=== PATIENT | female | born 1945 | race Caucasian/White ===

== ENCOUNTER 2017-11-14 08:42 | Emergency (ER) | payer MEDICARE, BC ==
[2017-11-14 08:43] VITALS: BMI 20.9
[2017-11-14 09:00] VITALS: TEMP 98.6; O2SAT 100
--- NOTE | 2017-11-14 11:07 | ED PDOC ---
Arrival/HPI - General Chief Complaint: Back Pain Time Seen by Provider: 11/14/17 09:14 Historian: Patient - History of Present Illness Narrative History of Present Illness (Text): 11/14/17 11:04 72yo female with no PMhx present with complaint of severe sharp left sided lower back pain that radiates posteriorly to her foot x 10days. States pain is usually worse with movement. Notes that she took ASA yesterday and applied topical OTC analgesic without relieve. Denies abdominal pain, urinary symptoms, focal weakness, trauma, urinary/fecal incontinence, any other complaint. Past Medical History - Provider Review Nursing Documentation Reviewed: Yes - Infectious Disease Hx of Infectious Diseases: None - Reproductive Menopause: Yes - Hematological/Oncological Hx Blood Transfusions: No - Psychiatric Hx Emotional Abuse: No Hx Physical Abuse: No Hx Substance Use: No - Anesthesia Hx Anesthesia: No Hx Anesthesia Reactions: No Hx Malignant Hyperthermia: No - Suicidal Assessment Feels Threatened In Home Enviroment: No Family/Social History - Physician Review Nursing Documentation Reviewed: Yes Family/Social History: Unknown Family HX Smoking Status: Never Smoked Hx Alcohol Use: No Hx Substance Use: No Allergies/Home Meds Allergies/Adverse Reactions: Allergies No Known Allergies Allergy (Verified 11/14/17 09:14) Home Medications: Home Meds Medication Instructions Recorded Confirmed Acetaminophen [Tylenol 325mg tab] 500 mg PO QID PRN 11/14/17 11/14/17 Review of Systems - Physician Review All systems were reviewed & negative as marked: Yes - Review of Systems Constitutional: Normal Eyes: Normal ENT: Normal Respiratory: Normal Cardiovascular: Normal Gastrointestinal: Normal Genitourinary Female: Normal Musculoskeletal: Back Pain Skin: Normal Neurological: Normal Endocrine: Normal Hemo/Lymphatic: Normal Psychiatric: Normal Physical Exam Vital Signs Reviewed: Yes Vital Signs Temp Pulse Resp BP Pulse Ox 11/14/17 08:59 98.6 F 81 18 144/88 100 11/14/17 08:50 97.7 F 100 H 18 131/66 99 Temperature: Afebrile Blood Pressure: Normal Pulse: Regular Respiratory Rate: Normal Appearance: Positive for: Well-Appearing, Non-Toxic, Comfortable Pain Distress: None Mental Status: Positive for: Alert and Oriented X 3 - Systems Exam Head: Present: Atraumatic, Normocephalic Pupils: Present: PERRL Extroacular Muscles: Present: EOMI Conjunctiva: Present: Normal Mouth: Present: Moist Mucous Membranes Neck: Present: Normal Range of Motion Respiratory/Chest: Present: Clear to Auscultation, Good Air Exchange. No: Respiratory Distress, Accessory Muscle Use Cardiovascular: Present: Regular Rate and Rhythm, Normal S1, S2. No: Murmurs Abdomen: Present: Normal Bowel Sounds. No: Tenderness, Distention, Peritoneal Signs Back: Present: Paraspinal Tenderness (Left paralumbar tenderness), Pain with Leg Raise (Left leg). No: CVA Tenderness, Midline Tenderness Upper Extremity: Present: Normal Inspection. No: Cyanosis, Edema Lower Extremity: Present: Normal Inspection. No: Edema Neurological: Present: GCS=15, CN II-XII Intact, Speech Normal Skin: Present: Warm, Dry, Normal Color. No: Rashes Psychiatric: Present: Alert, Oriented x 3, Normal Insight, Normal Concentration Medical Decision Making ED Course and Treatment: 11/14/17 11:07 PT in ED for stated history. On re evaluation pt states her pain improved with medication in ED. She was ambulatory and neurologically intact. LS xray - No acute fracture/finding Result was DW the pt. she will be DC home with rx of Naprosyn and flexeril. Referred to her PMD - RAD Interpretation Radiology Orders: 11/14/17 09:20 LS SPINE WITH OBL > 18 YRS OLD [RAD] Stat - Medication Orders Current Medication Orders: Discontinued Medications Cyclobenzaprine HCl (Flexeril) 10 mg PO STAT STA Stop: 11/14/17 09:23 Last Admin: 11/14/17 09:42 Dose: 10 mg Ketorolac Tromethamine (Toradol) 60 mg IM STAT STA Stop: 11/14/17 09:22 Last Admin: 11/14/17 09:40 Dose: 60 mg MAR Pain Assessment Document 11/14/17 09:40 SF (Rec: 11/14/17 09:42 SF [facility] [place] [facility] [id number] Pain Reassessment Is this a pain reassessment? Yes Sleep Is patient sleeping during reassessment? No Presence of Pain Presence of Pain Yes IM Administration Charges Document 11/14/17 09:40 SF (Rec: 11/14/17 09:42 SF [facility] [place] [facility] [id number] Injection Site MAR Injection Site Left Deltoid Charges for Administration # of IM Administrations 1 Disposition/Present on Arrival - Present on Arrival Any Indicators Present on Arrival: No History of DVT/PE: No History of Uncontrolled Diabetes: No Urinary Catheter: No History of Decub. Ulcer: No History Surgical Site Infection Following: None - Disposition Have Diagnosis and Disposition been Completed?: Yes Diagnosis: Back pain, Sciatica Disposition: HOME/ ROUTINE Disposition Time: 11:15 Patient Plan: Discharge Condition: STABLE Discharge Instructions (ExitCare): Sciatica (DC) Additional Instructions: Follow up with your doctor/Orthopedist Return to ED for any new or worsening symptoms Prescriptions: Cyclobenzaprine [Flexeril] 5 mg PO DAILY #10 tab Naproxen [Naprosyn] 500 mg PO BID #20 tablet Referrals: Mara Abad DO [Primary Care Provider] - Follow up with primary Cee Reddy MD [Staff Provider] - Follow up with primary Forms: [employer] (Danish)
--- NOTE | 2017-11-14 11:11 | RAD ---
PROCEDURE: Radiographs of the Lumbar Spine. HISTORY: back pain COMPARISON: No prior. FINDINGS: BONES: Normal alignment. No listhesis. No fracture. DISC SPACES: Disc and facet degeneration at L5-S1 OTHER FINDINGS: None. IMPRESSION: Disc and facet degeneration at L5-S1
[2017-11-14 11:36] VITALS: BP 140/70; PULSE 82; RESP 16
== END 2017-11-14 11:39 | disposition home or self-care (01) ==
LOC: ED 08:42
DX: M54.30 Sciatica, unspecified side (principal); M54.5 Low back pain
CPT/HCPCS: 72110; 96372; 99285; J1885

== ENCOUNTER 2017-12-03 09:50 | Emergency (ER) | payer MEDICARE, BC ==
[2017-12-03 09:51] VITALS: BMI 20.9
--- NOTE | 2017-12-03 10:43 | ED PDOC ---
Arrival/HPI - General Chief Complaint: Lower Extremity Problem/Injury Time Seen by Provider: 12/03/17 10:03 Historian: Patient - History of Present Illness Narrative History of Present Illness (Text): 12/03/17 10:10 A 72 year old female, with no significant past medical history, presents to the emergency department complaining of continued left leg pain. Patient reports being seen here in the ER for similar problem. States she followed up with PMD and is currently on Naproxen for pain but has had no relief. Patient mentions she has a follow-up appointment with specialist next week. Patient denies any trauma and no saddle anesthesia. PMD: Dr. Abad Past Medical History - Provider Review Nursing Documentation Reviewed: Yes - Infectious Disease Hx of Infectious Diseases: None - Reproductive Menopause: Yes - Hematological/Oncological Hx Blood Transfusions: No - Psychiatric Hx Emotional Abuse: No Hx Physical Abuse: No Hx Substance Use: No - Anesthesia Hx Anesthesia: No Hx Anesthesia Reactions: No Hx Malignant Hyperthermia: No - Suicidal Assessment Feels Threatened In Home Enviroment: No Family/Social History - Physician Review Nursing Documentation Reviewed: Yes Family/Social History: No Known Family HX Smoking Status: Never Smoked Hx Alcohol Use: No Hx Substance Use: No Allergies/Home Meds Allergies/Adverse Reactions: Allergies No Known Allergies Allergy (Verified 11/14/17 09:14) Home Medications: Home Meds Medication Instructions Recorded Confirmed Acetaminophen [Tylenol 325mg tab] 500 mg PO QID PRN 11/14/17 12/03/17 Review of Systems - Physician Review All systems were reviewed & negative as marked: Yes - Review of Systems Constitutional: absent: Other (no trauma) Musculoskeletal: Other (left leg pain; no saddle anesthesia) Physical Exam Vital Signs Reviewed: Yes Vital Signs Temp Pulse Resp BP Pulse Ox 12/03/17 14:12 98.3 F 74 17 136/74 98 12/03/17 09:51 97.6 F 97 H 18 113/60 100 Temperature: Afebrile Blood Pressure: Normal Pulse: Regular Respiratory Rate: Normal Appearance: Positive for: Well-Appearing Pain Distress: None Mental Status: Positive for: Alert and Oriented X 3 - Systems Exam Head: Present: Atraumatic, Normocephalic Pupils: Present: PERRL Extroacular Muscles: Present: EOMI Conjunctiva: Present: Normal Mouth: Present: Moist Mucous Membranes Neck: Present: Normal Range of Motion Respiratory/Chest: Present: Clear to Auscultation, Good Air Exchange. No: Respiratory Distress, Accessory Muscle Use Cardiovascular: Present: Regular Rate and Rhythm, Normal S1, S2. No: Murmurs Abdomen: Present: Normal Bowel Sounds. No: Tenderness, Distention, Peritoneal Signs Back: Present: Normal Inspection Upper Extremity: Present: Normal Inspection. No: Cyanosis, Edema Lower Extremity: Present: Normal Inspection. No: Edema Neurological: Present: GCS=15, CN II-XII Intact, Speech Normal Skin: Present: Warm, Dry, Normal Color. No: Rashes Psychiatric: Present: Alert, Oriented x 3, Normal Insight, Normal Concentration Medical Decision Making ED Course and Treatment: 12/03/17 10:14 Impression: 72 year old female with left leg pain. No acute findings on physical examination. Plan: -- Flexiril -- Toradol -- Reassess and disposition Prior Visits: Notes and results from previous visits were reviewed. Patient was last seen in the emergency department on 11/14/2017 for severe sharp left-sided back pain radiating posterior to her foot. Patient was d/c home. Progress Notes: - Medication Orders Current Medication Orders: Discontinued Medications Cyclobenzaprine HCl (Flexeril) 10 mg PO STAT STA Stop: 12/03/17 10:15 Last Admin: 12/03/17 10:22 Dose: 10 mg Ketorolac Tromethamine (Toradol) 60 mg IM STAT STA Stop: 12/03/17 10:15 Last Admin: 12/03/17 10:22 Dose: 60 mg MAR Pain Assessment Document 12/03/17 10:22 EQ (Rec: 12/03/17 10:23 EQ [id number]) Pain Reassessment Is this a pain reassessment? No Sleep Is patient sleeping during reassessment? No Presence of Pain Presence of Pain Yes Pain Scale Used Pain Scale Used Numeric Location Left, Right or Bilateral Left Pain Location Body Site Leg IM Administration Charges Document 12/03/17 10:22 EQ (Rec: 12/03/17 10:23 EQ [id number]) Charges for Administration # of IM Administrations 1 Oxycodone HCl (Oxycodone Immediate Release Tab) 5 mg PO STAT STA Stop: 12/03/17 11:38 Last Admin: 12/03/17 11:59 Dose: 5 mg MAR Pain Assessment Document 12/03/17 11:59 EQ (Rec: 12/03/17 11:59 EQ [id number]) Pain Reassessment Is this a pain reassessment? No Sleep Is patient sleeping during reassessment? No Presence of Pain Presence of Pain Yes - Scribe Statement The provider has reviewed the documentation as recorded by the Chepe Lawson Provider Scribe Attestation: All medical record entries made by the Scribe were at my direction and personally dictated by me. I have reviewed the chart and agree that the record accurately reflects my personal performance of the history, physical exam, medical decision making, and the department course for this patient. I have also personally directed, reviewed, and agree with the discharge instructions and disposition. Disposition/Present on Arrival - Present on Arrival Any Indicators Present on Arrival: No History of DVT/PE: No History of Uncontrolled Diabetes: No Urinary Catheter: No History of Decub. Ulcer: No History Surgical Site Infection Following: None - Disposition Have Diagnosis and Disposition been Completed?: Yes Diagnosis: Sciatic leg pain Disposition: HOME/ ROUTINE Disposition Time: 12:15 Condition: IMPROVED Discharge Instructions (ExitCare): Sciatica (DC), Sciatica Exercises Additional Instructions: Thank you for letting us take care of you today. The emergency medical care you received today was directed at your acute symptoms. If you were prescribed any medication, please fill it and take as directed. It may take several days for your symptoms to resolve. Return to the Emergency Department if your symptoms worsen, do not improve, or if you have any other problems. Please contact your doctor or call one of the physicians/clinics you have been referred to that are listed on the Patient Visit Information form that is included in your discharge packet. Bring any paperwork you were given at discharge with you along with any medications you are taking to your follow up visit. Our treatment cannot replace ongoing medical care by a primary care provider (PCP) outside of the emergency department. Thank you for allowing the [facility] team to be part of your care today. Follow up with your primary doctor in 3-4 days for re-evaluation and further management. Prescriptions: Cyclobenzaprine [Cyclobenzaprine HCl] 10 mg PO Q8 PRN #20 tab PRN Reason: Muscle Spasm oxyCODONE [oxyCODONE Immediate Release Tab] 5 mg PO Q6 PRN #15 tab PRN Reason: Pain, Severe (8-10) Referrals: Mara Abad DO [Primary Care Provider] - Follow up with primary Forms: [employer] (Yakut)
[2017-12-03] MEDS ORDERED: oxyCODONE 5 mg Immediate Release Tab PO STA (11:37)
[2017-12-03 14:13] VITALS: BP 136/74; PULSE 74; RESP 17; TEMP 98.3; O2SAT 98
== END 2017-12-03 15:03 | disposition home or self-care (01) ==
LOC: ED 09:50
DX: M54.30 Sciatica, unspecified side (principal); M79.605 Pain in left leg
CPT/HCPCS: 96372; 99283; J1885

== ENCOUNTER 2018-04-12 07:16 | Day surgery (SDC) | payer MEDICARE, BC ==
[2018-04-11 13:53] VITALS: BMI 20.3
[2018-04-12] MEDS ORDERED: Propofol 10 mg/ml Inj (20 ML) ONE (09:33)
[2018-04-12] MEDS ORDERED: Sodium Chloride 0.9% 1,000 ML IV SCH (10:00)
[2018-04-12 13:57] VITALS: BP 142/77; PULSE 61; RESP 16; TEMP 97.9; O2SAT 98
== END 2018-04-12 11:34 | disposition home or self-care (01) ==
LOC: ENDO 07:16
PROVIDERS: ATTEND Internal Medicine Gastroenterology
DX: K25.9 Gastric ulcer, unspecified as acute or chronic, without hemorrhage or perforation (principal); K44.9 Diaphragmatic hernia without obstruction or gangrene; K21.9 Gastro-esophageal reflux disease without esophagitis; K29.50 Unspecified chronic gastritis without bleeding; K29.80 Duodenitis without bleeding
CPT/HCPCS: 43239; 88305; 88342; J2704; J7030; J7040